=== PATIENT | female | born 2000 | race Caucasian/White ===

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

== ENCOUNTER 2020-06-18 13:05 | Emergency (ER) | payer OTHER ==
[~2020-06-18] VITALS: Ht 162.6 cm; Wt 71.8 kg
--- NOTE | 2020-06-18 13:20 | NUR ---
PT COMES IN TODAY C/O "IT COMES IN WAVES WHERE I CANT GET A DEEP BREATH IN. LIKE ONLY THE TOP OF MY LUNGS ARE WORKING." PT STATES SHE USES ALBUTEROL FOR RESCUE 2-3/WK. PT STATES SHE HAS HAD TO USE HER INHALER MULTIPLE TIMES TODAY INCLUDING W/IN THE PAST 15 MINUTES. PT STATES "MY ALBUTEROL ISNT WORKING ANYMORE". PT STATES SHE WAS RECENTLY DIAGNOSED, X1MO AGO, WITH SEVERAL SEASONAL ALLERGIES, PEANUTS, AND SULFA. PT STATES SHE CARRIES AN EPIPEN W/HER PER THE RECOMMENDATION OF THE HI LIFT OPERATOR BUT HAS NOT HAD TO USE IT THUS FAR. MONITORS CONNECTED. CALL LIGHT W/IN REACH. EKG COMPLETE. WARM BLANKET PROVIDED
[2020-06-18] MEDS ORDERED: ALBUTEROL/IPRATROPIUM 2.5MG/0.5MG, 3 ML ONE (13:57)
[2020-06-18] MEDS ORDERED: ALBUTEROL/IPRATROPIUM 2.5MG/0.5MG, 3 ML NPPB ONE (14:00)
[2020-06-18 15:26] VITALS: BP 120/80
--- NOTE | 2020-06-18 15:29 | NUR ---
PT REC'VD DISCHARGE INSTRUCTIONS AND EDUCATION. PT HAD NO FURTHER QUESTIONS.
--- NOTE | 2020-06-18 15:44 | NUR ---
PT AMBULATED TO OR AREA, STEADY GAIT.
== END 2020-06-18 15:50 | disposition home or self-care (01) ==
LOC: ED 14:40
DX: J45.41 Moderate persistent asthma with (acute) exacerbation (principal); R00.0 Tachycardia, unspecified
CPT/HCPCS: 71045; 93005; 94640; 99283; J7512